=== PATIENT | male | born 1965 | race Caucasian/White ===

== ENCOUNTER → 2017-02-06 | Outpatient (CLI) | payer BC ==
[2017-02-06 09:12] LABS: BASOPHILS # (AUTO) 0.05 10*3/UL; BASOPHILS % (AUTO) 1.2 % (0-1); HEMOGLOBIN 14.3 g/dL (14.0-18.0); IMM GRAN % (AUTO) 0 % (0-5); IMM GRAN# (AUTO) 0 10*3/UL; LYMPHOCYTES # (AUTO) 0.94 10*3/uL; LYMPHOCYTES % (AUTO) 23.4 % (10-50); MEAN CORPUSCULAR HEMOGLOBIN 27.7 PG (27-31); MEAN CORPUSCULAR HGB CONC 32.5 g/dL (33-37); MEAN PLATELET VOLUME 8.7 FL (7.4-12.2); MONOCYTES # (AUTO) 0.58 10*3/UL (0.3-0.8); MONOCYTES % (AUTO) 14.5 % (5-15); NEUTROPHILS % (AUTO) 54.9 % (50-80); RDW COEFFICIENT OF VARIATION 13.1 % (11.5-14.5); RED BLOOD COUNT 5.16 10^6/uL (4.70-6.10); WHITE BLOOD COUNT 4.01 10^3/uL (4.8-10.8)
[2017-02-06 09:29] LABS: HEMOGLOBIN A1C 8.57 % (4.2-6.0); MEAN BLOOD GLUCOSE (CALC) 199.381 mg/dL
[2017-02-06 09:31] LABS: BILIRUBIN,TOTAL 0.7 mg/dL (0.3-1.2); BUN/CREATININE RATIO 16.15 (6-20); CREATININE 1.3 mg/dL (0.70-1.50); POTASSIUM 4.4 meq/L (3.8-5.2); TOTAL PROTEIN 6.7 g/dL (6.1-8.0)
[2017-02-06 09:37] LABS: CREATININE, URINE 90.8 MG/DL (15-500)
[2017-02-06 09:47] LABS: PLATELET MORPHOLOGY COMMENT NORMAL MORPHOLOGY (NORM)
[2017-02-06 09:48] LABS: CALCIUM 9.6 mg/dL (8.7-10.7)
[2017-02-06 09:51] LABS: BILIRUBIN,URINE NEGATIVE (NEG); CLARITY,URINE CLEAR (CLEAR); GLUCOSE, URINE (UA) 250 mg/dL (NEG); LEUKOCYTE ESTERASE ,URINE NEGATIVE (NEG); NITRATE,URINE NEGATIVE (NEG); OCCULT BLOOD,URINE NEGATIVE (NEG); PH,URINE 5.5 (5.0-8.5); PROTEIN,URINE TRACE mg/dl (NEG); URINE SAMPLE TYPE CLEAN CATCH URINE
[2017-02-06 09:52] LABS: RBC,URINE 0-1 /hpf; WBC,URINE 0
[2017-02-06 15:17] LABS: LDL CHOLESTEROL,CALCULATED 74.6 mg/dL
== END ==
LOC: LAB 08:35
DX: E10.21 Type 1 diabetes mellitus with diabetic nephropathy (principal); I10 Essential (primary) hypertension; E55.9 Vitamin D deficiency, unspecified; Z94.0 Kidney transplant status
CPT/HCPCS: 36415; 80053; 80061; 80197; 81001; 82043; 82306; 83036; 84443; 85025

== ENCOUNTER → 2017-07-15 | Outpatient (CLI) | payer BC ==
[2017-07-15 10:23] LABS: HEMOGLOBIN A1C 8.85 % (4.2-6.0)
[2017-07-15 10:39] LABS: BLOOD UREA NITROGEN 24 mg/dL (7-22); CALCIUM 9.6 mg/dL (8.7-10.7); EST GLOMERULAR FILTRATION > 60 (>60 ml/min/1.73m(2))
== END ==
LOC: MOB LAB 08:24
DX: E10.21 Type 1 diabetes mellitus with diabetic nephropathy (principal); Z94.0 Kidney transplant status
CPT/HCPCS: 36415; 80053; 80197; 83036

== ENCOUNTER 2018-12-08 18:31 | Inpatient (IN) ==
[2018-12-08] MEDS ORDERED: Sodium Chloride 0.9% 1,000 ML PRIMARY IV ONE (18:49)
[2018-12-08] MEDS ORDERED: LABETALOL 20 MG/4 ML (5 MG/1 ML) SYRINGE IVP ONE (18:54)
[2018-12-08 19:04] LABS: BASOPHILS # (AUTO) 0.03 10*3/UL; BASOPHILS % (AUTO) 0.4 % (0-1); EOSINOPHILS # (AUTO) 0.08 10*3/UL; EOSINOPHILS % (AUTO) 1.1 % (0-8); Hematocrit [HCT] 47.5 % (42.0-52.0); Hemoglobin [HGB] 15.8 g/dL (14.0-18.0); LYMPHOCYTES # (AUTO) 1.24 10*3/uL; MEAN CORPUSCULAR HEMOGLOBIN 28.2 PG (27-31); MEAN CORPUSCULAR HGB CONC 33.3 g/dL (33-37); MEAN CORPUSCULAR VOLUME 84.8 FL (80-90); MEAN PLATELET VOLUME 8.9 FL (7.4-12.2); MONOCYTES # (AUTO) 0.42 10*3/UL (0.3-0.8); MONOCYTES % (AUTO) 5.9 % (5-15); NEUTROPHILS # (AUTO) 5.38 10*3/UL; NEUTROPHILS % (AUTO) 75.2 % (50-80)
[2018-12-08 19:06] LABS: PLATELET MORPHOLOGY COMMENT NORMAL MORPHOLOGY (NORM); RBC MORPHOLOGY COMMENT NORMAL MORPHOLOGY (NORM); WBC MORPHOLOGY COMMENT NORMAL MORPHOLOGY (NORM)
--- NOTE | 2018-12-08 19:11 | EKG ---
[address] [address] Measurements Intervals [place] Rate: 57 P: 109 GA: 178 QRS: -28 QRSD: 110 T: 149 QT: 372 QTc: 365 Interpretive Statements Sinus Rhythm Borderline left axis and Left Ventricular hypertrophy (by aVL voltage) Since 02/16/2016 study no acute changes Electronically Signed On 12-09-18 08:29:01 [facility] by Shahram Alva MD [email or web address]
[2018-12-08 19:15] LABS: BUN/CREATININE RATIO 14.61 (6-20); SERUM ALBUMIN 4.7 g/dL (3.5-4.8)
[2018-12-08 20:21] LABS: BILIRUBIN,URINE NEGATIVE (NEG); CLARITY,URINE CLEAR (CLEAR); COLOR,URINE YELLOW (Y); GLUCOSE, URINE (UA) 100 mg/dL (NEG); OCCULT BLOOD,URINE NEGATIVE (NEG); PROTEIN,URINE 30 mg/dl (NEG); UROBILINOGEN,URINE 0.2 EU/dL (0.2)
[2018-12-08 20:22] LABS: URINE SAMPLE TYPE VOIDED SPECIMEN
[2018-12-08 20:26] LABS: RBC,URINE 0-1 /hpf; WBC,URINE 0-1
--- NOTE | 2018-12-08 20:55 | PDOC ---
General Adult HPI - General Chief Complaint: General Medical Stated Complaint: HYPERTENSION Date Seen by Provider: 12/08/18 Time Seen by Provider: 18:45 Source: POSITIVE: Patient Exam Limitations: POSITIVE: No limitations Nurse's Notes Reviewed & Considered: Yes - History of Present Illness Initial Comment: The patient is a 53-year-old male. Patient has a history of renal failure due to diabetes. He states he underwent a renal transplant in 2003. The patient was having an eye exam done by his eye physician today and the patient states that in the eye physician's office his blood pressure was 212/105. Patient took his blood pressure at home after he returned from the eye physician's office and his blood pressure was 239/103. Patient states that when he went into acute renal failure he had a hypertensive crisis which resulted in hemorrhage into both eyes. He underwent bilateral vitrectomies and he was able to save the vision in his left eye, but his right eye is blind. Patient has a dialysis shunt in his left forearm which was used prior to his renal transplant. Patient denies any head chest or abdominal pain. No GI or symptoms. No neurologic symptoms. Patient was cared for by Dr. Almodovar and is now cared for by Dr. Potter. Patient had a recent CMP done and at that time his creatinine was 1.4. Have you received a tetanus shot in the past 10 years?: Unknown Body Location Affected: REPORTS: Other (High blood pressure) Timing: REPORTS: Gradual Duration: >24 hours Severity: Moderate Quality: REPORTS: Other Context: REPORTS: Other (As above) Modifying Factors: improves with: Nothing Similar Symptoms Previously: Yes (history of hypertension as above; on ramipril and carvedilol) Recent Care Received: REPORTS: Recently Seen, Treated by MD (As above) Any Prior Injuries Related to Current Complaint?: No - Patient Home Medications Home Medications: Home Medications Multivitamin [One Daily] 1 ea PO DAILY 05/11/12 Aspirin [Aspir 81] 81 mg PO QD 06/18/13 Cholecalciferol (Vitamin D3) [Vitamin D3] 2,000 unit PO QD 06/18/13 Peg 3350/Na Sulf,Bicarb,Cl/KCl [Peg-3350 and Electrolytes Soln] 4,000 ml PO DAILY #1 bottle 09/30/14 insulin lispro (U- 100) 100 unit/mL subcutaneous solution 1.5 unit CONTINUOUS SUBCUTANEOUS INFUSION PRN #3 vial 11/06/17 blood sugar diagnostic strips 1 strip MISCELLANEOUS 6XD #200 strip 03/07/18 carvedilol 12.5 mg tablet 12.5 mg PO BID #180 tab 07/17/18 ramipril 10 mg capsule 10 mg PO QDAY #30 cap 09/11/18 mycophenolate sodium 360 mg tablet,delayed release 720 mg PO BID #120 tab 09/19/18 prednisone 5 mg tablet 5 mg PO QDAY #30 tab 09/19/18 pravastatin 10 mg tablet 10 mg PO QDAY #30 tab 10/03/18 tacrolimus 1 mg capsule 1 mg PO BID #60 cap 10/09/18 Ostomy Supply [Protective Barrier Film] 0 unit .ROUTE .MEDSUPPLY 12/08/18 - Patient Allergies Allergies/Adverse Reactions: Allergies Allergy/AdvReac Type Severity Reaction Status Date / Time piroxicam [From Feldene] Allergy NOT Verified 12/08/18 18:33 APPLICABLE promethazine HCl Allergy HALLUCINATI Verified 12/08/18 18:33 [From Phenergan] ONS Past Medical History - heen HEENT History: Cataracts, Retinopathy Additional HEENT History: BLIND IN RIGHT EYE Cardiovascular History: Hypertension, Hyperlipidemia Respiratory History: Denies History Gastrointestinal History: Denies History Additional Gastrointestinal History: DIABETIC GASTROPARESIS. KIDNEY TRANSPLANT 2003 Genitourinary History: Renal Failure, Other (please comment) Additional Genitourinary History: HX OF RENAL FAILURE WITH KIDNEY TRANSPLANT. HAD BEEN ON DIALYSIS FOR 2 YEARS PRIOR TO TRANSPLANT Endocrine History: Type 1 Diabetes Additional Endocrine History: DIABETIC NEUROPATHY Musculoskeletal History: Osteoporosis Prosthesis or Implant: No Additional Musculoskeletal History: OSTEOPENIA Neurological History: Motion Sickness Blood Disorders: Denies History Psychiatric History: Denies History History of Sexually Transmitted Diseases: No Male Reproductive History: Denies History Cancer History: Denies History In Past Year Been Physically Harmed or Verbally Threatened: No History of MDRO: Yes Type of MDRO: MRSA History of Other Communicable Diseases: No Tobacco Use: Never Smoker Alcohol Use: Rarely In the Past 12 Months, Have Used or Abuse Any Substance: None Previous Surgical History: Yes Type / Date of Surgery: CATARACT EXT/LEFT EYE- FISTULA LEFT ARM FOR DIALYSIS. KIDNEY TRANSPLANT, VITRECTOMIES X2 BILATERAL EYES Anesthesia Reactions: No Malignant Hyperthermia: No Family History of Malignant Hyperthermia: No Significant Family History: No pertinent family hx Past Medical History Reviewed: Reviewed - No Changes ROS - Limitations ROS Limitations: No Limitations Constitution: REPORTS: Denies Symptoms Cardiovascular: REPORTS: Denies Cardiac Symptoms Respiratory: REPORTS: Denies Resp Symptoms Neurological: REPORTS: Denies Neuro Symptoms Gastrointestinal: REPORTS: Denies GI Symptoms Endocrine: REPORTS: Denies Symptoms Musculoskeletal: REPORTS: Denies MS Symptoms Genitourinary: REPORTS: Denies Symptoms Eyes: REPORTS: Denies Symptoms ENT: REPORTS: Denies Symptoms Skin: REPORTS: Denies Skin Symptoms Lympathic: REPORTS: Denies Lympathic Symptoms Immunologic: POSITIVE: Denies Symptoms Psychiatric: POSITIVE: Denies Psych Symptoms General Adult Exam - General Appearance General Appearance: POSITIVE: Alert, Cooperative, No Acute Distress, No Evidence of Trauma - HEENT HEENT: POSITIVE: Head Inspection Nml, Ears Inspection Nml, Nose Inspection Nml, Oral/Dental Inspect. Nml, Pharynx Inspect. Nml, EOMI. NEGATIVE: Eyes Inspection Nml (Right cornea is opacified; right eye blind) - Pupils Pupil Size: 4 mm: Left (reactive to light and accommodation) - Neck Neck: POSITIVE: Normal Inspection, Thyroid Normal - Respiratory Respiratory: POSITIVE: No Respiratory Distress, Breath Sounds Normal, Chest Non- Tender - Cardiovascular Cardiovascular: POSITIVE: Regular Rate & Rhythm, No Murmur, No Gallop, PMI Normal Peripheral Pulses: Radial (R): 2+, Radial (L): 2+ - Abdomen Abdomen: Soft: (All Quadrants), Normal Bowel Sounds: (All Quadrants), Denies Tenderness: (All Quadrants), No Splenomegaly: (All Quadrants), No Hepatomegaly: (All Quadrants), No Guarding: (All Quadrants), No Rebound: (All Quadrants), No Palpable Pulse: (All Quadrants), No [place]ale Mass: (All Quadrants), No Distention: (All Quadrants), No Rigidity: (All Quadrants) - Back Back: POSITIVE: Normal Inspection - Skin Skin: POSITIVE: Normal Color, Warm, Dry, No Rash - Extremities Extremity: Non-Tender: (All Extremities), Normal ROM: (All Extremities), Normal Inspection: (All Extremities) - Neurological / Psychological Neurological: POSITIVE: Oriented X3, insulation nozzleman Normal As Tested, Motor Normal, Sensation Normal, 5, 6 General Adult Progress - Results Reviewed by me Lab Results Reviewed by Me: Yes Lab Results:: Laboratory Results 12/08/18 12/08/18 12/08/18 19:00 19:00 20:21 WBC 7.16 RBC 5.60 Hgb 15.8 Hct 47.5 MCV 84.8 MCH 28.2 MCHC 33.3 RDW Std Deviation 41.3 RDW Coeff of Aparna 13.4 Plt Count 234 MPV 8.9 Immature Gran % (Auto) 0.1 Neut % (Auto) 75.2 Lymph % (Auto) 17.3 [place] % (Auto) 5.9 Eos % (Auto) 1.1 Baso % (Auto) 0.4 Immature Gran # (Auto) 0.01 Neut # (Auto) 5.38 Lymph # (Auto) 1.24 [place] # (Auto) 0.42 Eos # (Auto) 0.08 Baso # (Auto) 0.03 WBC Morphology Comment Normal morphology Plt Morphology Comment Normal morphology RBC Morph Comment Normal morphology Sodium 131 L Potassium 4.3 Chloride 95 L Carbon Dioxide 28 Anion Gap 8 BUN 19 Creatinine 1.3 Estimated GFR 58 BUN/Creatinine Ratio 14.61 Glucose 160 H Calculated Osmolality 276.0 Calcium 9.8 Total Bilirubin 1.0 AST 20 L ALT 32 Alkaline Phosphatase 49 Total Protein 7.4 Albumin 4.7 Globulin 2.7 Albumin/Globulin Ratio 1.70 Ur Collection Type Voided specimen Urine Color Yellow Urine Clarity Clear Urine pH 7.0 Ur Specific [place] 1.015 Urine Protein 30 A Urine Glucose (UA) 100 Urine Ketones Negative Urine Occult Blood Negative Urine Nitrate Negative Urine Bilirubin Negative Urine Urobilinogen 0.2 Ur Leukocyte Esterase Negative Urine RBC 0-1 Urine WBC 0-1 Ur Squamous Epith Cells None Ur Renal Epithelial Cell None Urine Crystals None Urine Bacteria None Urine Casts None Urine Mucus None Urine Trichomonas None Urine Yeast None Ur Culture Indicated? Culture not set CBC and BMP: 12/08/18 19:00 12/08/18 19:00 EKG Interpreted/Reviewed By Me:: Yes (Q-wave in lead 1 and aVL; unchanged from 10/29/2014) EKG Interpretation:: POSITIVE: Normal Sinus Rhythm, Normal Rate, Normal Intervals, Normal [place], Normal ST/T. NEGATIVE: Normal QRS (Q-wave in leads 1 and aVL, unchanged from 10/29/2014) - Patient's Progress Pain Medication Addressed: POSITIVE: Yes School/Work Release Addressed: POSITIVE: Not Applicable Re-Examine Time: 20:25 Re-Examine Comment: Labetalol 20 mg IV over 2 minutes was given. Patient's blood pressure went down to 180/94, but then came back up to 222/101. Patient's renal status appears stable, however in view of the fact of patient's renal problems, and his past history of hypertensive crisis resulting in blindness to his right eye, it is felt prudent to admit the patient and gradually lower his blood pressure and for further evaluation. Case discussed with Dr. Hussein, hospitalist, who will admit patient for further evaluation and treatment. Status: POSITIVE: Unchanged, Re-Examined Antibiotics Given: No - Consult Consult (If Yes, Name of Consulting MD & Time Called): Yes (Dr. Hussein, hospitalist, 2024) Consulting MD will see pt:: POSITIVE: [facility] Admit Counseled: POSITIVE: Patient, RE: Lab Results, RE: DX, RE: Need for F/U Patient Care Time - Estimated PCT Patient Care Time (In Minutes): 50 Vital Signs - Recent Vital Signs Vital Signs: On discharge, blood pressure is 222/101, heart rate 64, respiratory rate 18, temperature 96.3, oxygen saturation 98%. - VS Reviewed Vital Signs Reviewed: Yes Discharge Clinical Impression: Hypertensive urgency, Diabetes mellitus, Renal transplant, status post Discharge Disposition: Admit to Inpatient Condition: Good Follow Up With: FRANCHESKA POTTER [Primary Care Provider] - Date Decision to Admit to Inpatient: 12/08/18 Time Decision to Admit to Inpatient: 20:25
[2018-12-08] MEDS ORDERED: Nitroglycerin Drip 25,000 MCG/250 ML BOTTLE IV ONE (21:42)
--- NOTE | 2018-12-08 21:51 | PDOC ---
HPI - History of Present Illness Date of Service: 12/08/18 Time of Service: 21:46 Chief Complaint: High blood pressure History of Present Illness: This very pleasant 53-year-old male with history of right eye blindness after retinal detachment, diabetes mellitus type I, history of renal transplant in 2003, who comes in stating that he had his eyes checked today by his eye doctor and it was noted that his systolic blood pressure was was in the systolic blood pressure range of 212. He denies having significant problems with his blood pressure since his kidney transplant in 2003. Prior to his kidney transplant, he had significantly high blood pressures that were involved with his retinal detachment. He tells me that his eye exam was okay today with his eye technician. He had some changes in his vision and has bifocal prescription was changed today. Despite his blood pressure, apparently on eye examination there did not appear to be any hypertensive damage. He had some sort of film developing over her prior cataract this with the patient conveyed to me. He went home, checked his blood pressure again, and his systolic pressure was in the 230s. He states to me that normally his blood pressures are in the 130s range or below on the systolic side. He has not checked her blood pressure since about mid November. He is on both Coreg and ramipril for his blood pressures and his creatinine runs around 1.3 and is been around that range since his kidney transplant. The donor was his sister. He does not follow with a boot and shoe repairman at this time for monitoring his tacrolimus or CellCept levels. He denies any anti-inflammatory use. He does not smoke. He states to me that his systolic pressure the last time he visited his primary physician was around the 160s range, but he states that it can go up a little bit during the evening after his work is done for the day. 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 He denied any chest pain, headaches, or urinary complaints. His initial EKG shows sinus bradycardia with no evidence of ST changes. Troponin was negative. Past Medical History Medical History: 1. Hypertension. 2. Diabetes mellitus type I, on insulin pump. 3. End-stage kidney disease status post live donor transplant, in 2003, on CellCept, prednisone, and tacrolimus. 4. Hypercholesterolemia. 5. Dupuytren's contracture, left hand, awaiting surgery. Surgical History: 1. Renal transplant, live donor, in 2003 Pertinent Family History: Significant for diabetes and heart disease in his family Past Social History: Does not smoke or drink alcohol. Has 6 children described as healthy. 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 Lives in [place], [place]. Tobacco Use: Never Smoker In the Past 12 Months, Have Used or Abuse Any of the Following Substance: None Alcohol Use: None Medication / Allergies Home Medications: Home Medications Medication Instructions Recorded Confirmed Type Multivitamin [One Daily] 1 ea PO DAILY 05/11/12 12/08/18 History Aspirin [Aspir 81] 81 mg PO QD 06/18/13 12/08/18 History Cholecalciferol (Vitamin D3) 2,000 unit PO QD 06/18/13 12/08/18 History [Vitamin D3] Peg 3350/Na Sulf,Bicarb,Cl/KCl 4,000 ml PO DAILY #1 bottle 09/30/14 12/08/18 History [Peg-3350 and Electrolytes Soln] insulin lispro (U- 100) 100 1.5 unit CONTINUOUS SUBCUTANEOUS 11/06/17 12/08/18 Rx unit/mL subcutaneous solution INFUSION PRN #3 vial blood sugar diagnostic strips 1 strip MISCELLANEOUS 6XD #200 03/07/18 12/08/18 Rx strip carvedilol 12.5 mg tablet 12.5 mg PO BID #180 tab 07/17/18 12/08/18 Rx ramipril 10 mg capsule 10 mg PO QDAY #30 cap 09/11/18 12/08/18 Rx mycophenolate sodium 360 mg 720 mg PO BID #120 tab 09/19/18 12/08/18 Rx tablet,delayed release prednisone 5 mg tablet 5 mg PO QDAY #30 tab 09/19/18 12/08/18 Rx pravastatin 10 mg tablet 10 mg PO QDAY #30 tab 10/03/18 12/08/18 Rx tacrolimus 1 mg capsule 1 mg PO BID #60 cap 10/09/18 12/08/18 Rx Ostomy Supply [Protective Barrier 0 unit .ROUTE .MEDSUPPLY 12/08/18 12/08/18 History Film] Allergies/Adverse Reactions: Allergies Allergy/AdvReac Type Severity Reaction Status Date / Time piroxicam [From Feldene] Allergy NOT Verified 12/08/18 18:33 APPLICABLE promethazine HCl Allergy HALLUCINATI Verified 12/08/18 18:33 [From Phenergan] ONS Review of Systems - Review of Systems All Systems: Reviewed & No Additional Complaints Except as Stated (I did a 12 point review systems and it was negative other than that discussed below and in the history of present illness.) - Gastrointestinal Gastrointestinal / Abdominal: REPORTS: Constipation (Intermittent that is relieved with diet or occasional Colace. Has had colonoscopy that was negative in the past.) Exam - Vitals Vital Signs: Vital Signs Temperature 96.3 F Temperature Source Temporal Artery Scan Pulse Rate [Pulse Oximeter] 64 Respiratory Rate 18 Blood Pressure [Right Arm] 215/106 Pulse Ox 98 Oxygen Delivery Method Room Air Height 5 ft 11 in Weight 195 lb - General General Appearance: No Acute Distress, Cooperative - Head Head Exam: Normal Inspection, Normocephalic, Atraumatic - Eye Eye Exam: POSITIVE: No Scleral Icterus Eye: Other: Bilateral Eye (the right lens is clouded over, blind since 2003.) - ENT ENT Exam: POSITIVE: Mucous Membranes Moist - Neck Neck Exam: Normal Inspection, No Tenderness, No Lymphadenopathy, No Thyromegaly, JVP is not Raised - Respiratory Respiratory Exam: POSITIVE: Clear to Auscultation - Bilaterally, Breathing Non Labored, Normal to Percussion and Palpation - Cardiovascular Cardiovascular Exam: POSITIVE: RRR, No Murmur, No Clicks, No Gallops, No Rubs, No JVD - GI/Abdominal GI/Abdominal Exam: POSITIVE: Normal Bowel Sounds, Non Tender, Non Distended, Soft - Rectal Rectal Exam: POSITIVE: Deferred - External Exam: POSITIVE: Deferred Exam: POSITIVE: Deferred - Extremities Extremities Exam: POSITIVE: No Clubbing Present, No Edema Present, No Cyanosis Present - Back Back Exam: POSITIVE: No CVA Tenderness - Neurological Neurological Exam: POSITIVE: Alert, Oriented x 3, No Facial Droop, Speech Intact / Clear, Moves All Extremities Equally - Psychiatric Psychiatric Exam: POSITIVE: Normal Affect, Normal Mood Results - Labs CBC and BMP: 12/08/18 19:00 12/08/18 19:00 Additional Lab Results: Laboratory Results 12/08/18 12/08/18 12/08/18 19:00 19:00 20:21 WBC 7.16 RBC 5.60 Hgb 15.8 Hct 47.5 MCV 84.8 MCH 28.2 MCHC 33.3 RDW Std Deviation 41.3 RDW Coeff of Aparna 13.4 Plt Count 234 MPV 8.9 Immature Gran % (Auto) 0.1 Neut % (Auto) 75.2 Lymph % (Auto) 17.3 [place] % (Auto) 5.9 Eos % (Auto) 1.1 Baso % (Auto) 0.4 Immature Gran # (Auto) 0.01 Neut # (Auto) 5.38 Lymph # (Auto) 1.24 [place] # (Auto) 0.42 Eos # (Auto) 0.08 Baso # (Auto) 0.03 WBC Morphology Comment Normal morphology Plt Morphology Comment Normal morphology RBC Morph Comment Normal morphology Sodium 131 L Potassium 4.3 Chloride 95 L Carbon Dioxide 28 Anion Gap 8 BUN 19 Creatinine 1.3 Estimated GFR 58 BUN/Creatinine Ratio 14.61 Glucose 160 H Calculated Osmolality 276.0 Calcium 9.8 Total Bilirubin 1.0 AST 20 L ALT 32 Alkaline Phosphatase 49 Total Protein 7.4 Albumin 4.7 Globulin 2.7 Albumin/Globulin Ratio 1.70 Ur Collection Type Voided specimen Urine Color Yellow Urine Clarity Clear Urine pH 7.0 Ur Specific [place] 1.015 Urine Protein 30 A Urine Glucose (UA) 100 Urine Ketones Negative Urine Occult Blood Negative Urine Nitrate Negative Urine Bilirubin Negative Urine Urobilinogen 0.2 Ur Leukocyte Esterase Negative Urine RBC 0-1 Urine WBC 0-1 Ur Squamous Epith Cells None Ur Renal Epithelial Cell None Urine Crystals None Urine Bacteria None Urine Casts None Urine Mucus None Urine Trichomonas None Urine Yeast None Ur Culture Indicated? Culture not set - EKG Data -: EKG Interpreted by Me Rate: Bradycardia EKG Shows Normal: Sinus Rhythm - Imaging Status: Other (I have ordered a chest x-ray to look for signs of congestive heart failure or cardiomegaly.) Assessment and Plan - Patient Problems (1) Hypertensive crisis Current Visit: Yes Status: Acute Code(s): I16.9 - Hypertensive crisis, unspecified (2) Dupuytren contracture Current Visit: Yes Status: Acute Onset Date: 06/27/16 Code(s): M72.0 - Palmar fascial fibromatosis [Dupuytren] (3) Type 1 diabetes mellitus without complication Current Visit: Yes Status: Acute Code(s): E10.9 - Type 1 diabetes mellitus without complications (4) Hypertension Current Visit: Yes Status: Acute Code(s): I10 - Essential (primary) hypertension Qualifiers: Hypertension type: essential hypertension Qualified Code(s): I10 - Essential (primary) hypertension (5) Gastroparesis due to DM Current Visit: Yes Status: Acute Onset Date: 09/23/14 Code(s): E11.43 - Type 2 diabetes mellitus with diabetic autonomic (poly)neuropathy; K31.84 - Gastroparesis (6) Kidney replaced by transplant Current Visit: Yes Status: Acute Onset Date: 12/15/13 Code(s): Z94.0 - Kidney transplant status - Assessment / Plan Additional Assessment/Plan Details: I discussed with the patient that I feel that overall we should place him on some medications to try and bring his blood pressure down overnight. I'm really shooting to try and do about 10-20% reduction and get him on some by mouth medications to help. I did discuss with the patient that there are several medi cations that can interfere with CellCept and tacrolimus levels, and that given his kidney transplant status, it would be best if we got him in with a boot and shoe repairman. He has not followed one since Dr. Almodovar, . We can arrange this with the kidney specialist either in [place], or in [place]. I'm reluctant to increase the ESTELITA inhibitor due to his creatinine already being at 1.3. I would defer that to a boot and shoe repairman as an outpatient. We'll try a nitroglycerin drip here tonight, and if that is not effective, may go to nitroprusside. I have written for some Tylenol for headache if the pat ient develops any headache as side effects. Start at 5 mics per minute and will see how the blood pressures respond. Continue beta argenis but I don't think we have any room to increase the Coreg given his bradycardia already. May add Nitro-Bid by mouth starting tomorrow. Check labs in a.m. Check chest x-ray to see if there is any evidence for heart failure or cardiomegaly FULL CODE plan discussed with patient and he agrees with plan above.
[2018-12-08] MEDS ORDERED: ACETAMINOPHEN 325 MG TABLET PO PRN (22:42)
[2018-12-08] MEDS ORDERED: LIDOCAINE W/ SODIUM BICARB 0.5 ML SYR SUBD PRN (22:42)
[2018-12-08] MEDS ORDERED: DOCUSATE 100 MG CAPSULE PO PRN (22:42)
[2018-12-08] MEDS ORDERED: CALCIUM CARBONATE 500 MG (TUMS) CHEWABLE TABLET PO PRN (22:42)
[2018-12-08] MEDS ORDERED: INSULIN LISPRO SUBCUT SCH (22:42)
[2018-12-08] MEDS ORDERED: Nitroglycerin Drip 25,000 MCG/250 ML BOTTLE IV SCH (22:42)
[2018-12-08] MEDS ORDERED: ONDANSETRON 4 MG/2 ML VIAL IVP PRN (22:42)
[2018-12-08] MEDS ORDERED: Pravastatin Tab 20 MG TAB PO SCH (23:15)
[2018-12-08] MEDS: CARVEDILOL 12.5 MG TABLET PO SCH (23:21)
[2018-12-08] MEDS: TACROLIMUS ANHYDROUS 1 MG PO SCH (23:22)
[2018-12-08] MEDS: MYCOPHENOLATE SODIUM 360 MG PO SCH (23:22)
--- NOTE | 2018-12-08 23:39 | DI ---
History: ITS.REASON hypertensive crisis Physician Notes: Tech Comments: Exam: XR CXR 1 VIEW Comparison: 06/06/2013 FINDINGS: The lungs are clear. The pulmonary vascularity appears within limits. The cardiac and mediastinal contours appear within limits. The visualized osseous structures appear unremarkable. IMPRESSION: No evidence of acute disease.
[2018-12-09] MEDS ORDERED: NITROGLYCERIN SR 2.5 MG CAPSULE PO ONE (01:39)
[2018-12-09 05:37] LABS: BUN/CREATININE RATIO 13.07 (6-20)
[2018-12-09] MEDS: RAMIPRIL 10 MG CAPSULE PO SCH ×2 (06:08→08:23)
[2018-12-09] MEDS: CARVEDILOL 12.5 MG TABLET PO SCH ×2 (06:09→08:22)
[2018-12-09] MEDS: TACROLIMUS ANHYDROUS 1 MG PO SCH (08:31)
[2018-12-09] MEDS: MYCOPHENOLATE SODIUM 360 MG PO SCH (08:31)
[2018-12-09 08:43] VITALS: RESP 18; TEMP 96.8; O2SAT 93
[2018-12-09] MEDS ORDERED: predniSONE 5 MG TABLET PO SCH (09:00)
[2018-12-09] MEDS ORDERED: CHOLECALCIFEROL 1000 IU TABLET PO SCH (09:00)
[2018-12-09] MEDS ORDERED: NITROGLYCERIN SR 2.5 MG CAPSULE PO SCH ×2 (09:00)
[2018-12-09] MEDS ORDERED: Multivitamin Tab 1 TAB PO SCH (09:00)
[2018-12-09] MEDS ORDERED: ASPIRIN EC 81 MG TABLET PO SCH (09:00)
[2018-12-09] MEDS ORDERED: NITROGLYCERIN 6.5 MG PO SCH (09:00)
--- NOTE | 2018-12-09 10:44 | DCSUMMARY ---
Hospitalization Summary Admit Date: 12/08/2017 Discharge Date: 12/09/18 Primary Diagnosis:: hypertensive crisis Secondary Diagnosis:: Status post renal transplant, 2003 Hospital Course: This very pleasant 53-year-old male that came in with high blood pressures noticed in his eye clinic. He stated he felt "foggy", and noticed that his blood pressure was still at 239 when he got home after it was 212 systolic at the eye clinic. He came in for evaluation, and there was no evidence of end organ damage. There was no evidence of focal findings so a CT scan was not done of the head. Patient was admitted in hypertensive crisis and nitroglycerin was used. The patient's blood pressures improved significantly and his systolic pressures now have come down to the 130s to 140s systolic prior to discharge. We were able to stop the nitroglycerin drip and placed him on Nitro-Bid 2.5 mg twice a day. He does not have any fogginess this morning, he has normal vision in his left eye. He denies any chest pain, shortness breath, or nausea or vomiting. He is willing to reestablish with the real estate asset manager. So we talked with Dr. Edwards with [facility] and he was willing to take the patient and his office will call to schedule an appointment. Assessment and Plan: 1. As per discharge assessments noted 2. Disposition: Patient is discharged home. 3. Condition on discharge, stable and improved. 4. Diet: regular diet 5. Activities: resume normal activities 6. Follow-Up: 1. Dr. Acosta one week 2. Nephrology at next available 7. Medications at the Time of Discharge: Home Medications Medication Instructions Recorded Confirmed Type Multivitamin [One Daily] 1 ea PO DAILY 05/11/12 12/08/18 History Aspirin [Aspir 81] 81 mg PO QD 06/18/13 12/08/18 History Cholecalciferol (Vitamin D3) 2,000 unit PO QD 06/18/13 12/08/18 History [Vitamin D3] insulin lispro (U- 100) 100 1.5 unit CONTINUOUS SUBCUTANEOUS 11/06/17 12/08/18 Rx unit/mL subcutaneous solution INFUSION PRN #3 vial blood sugar diagnostic strips 1 strip MISCELLANEOUS 6XD #200 03/07/18 12/08/18 Rx strip carvedilol 12.5 mg tablet 12.5 mg PO BID #180 tab 07/17/18 12/08/18 Rx ramipril 10 mg capsule 10 mg PO QDAY #30 cap 09/11/18 12/08/18 Rx mycophenolate sodium 360 mg 720 mg PO BID #120 tab 09/19/18 12/08/18 Rx tablet,delayed release prednisone 5 mg tablet 5 mg PO QDAY #30 tab 09/19/18 12/08/18 Rx pravastatin 10 mg tablet 10 mg PO QDAY #30 tab 10/03/18 12/08/18 Rx tacrolimus 1 mg capsule 1 mg PO BID #60 cap 10/09/18 12/08/18 Rx Nitroglycerin ER [Nitro-Bid ER] 2.5 mg PO BID #60 capsule 12/09/18 Rx Exam - Vitals Vital Signs: Vital Signs Temperature 96.8 F Temperature Source Temporal Artery Scan Pulse Rate [Apical] 58 Pulse Rate [Pulse Oximeter] 57 Pulse Rate 59 Respiratory Rate 18 Blood Pressure [Left Arm] 137/73 Blood Pressure [Right Arm] 139/77 Pulse Ox 93 Oxygen Delivery Method Room Air Height 5 ft 11 in Weight 197 lb 6 oz - General General Appearance: No Acute Distress, Cooperative - Head Head Exam: Normal Inspection, Normocephalic, Atraumatic - Eye Eye Exam: POSITIVE: No Scleral Icterus - ENT ENT Exam: POSITIVE: Mucous Membranes Moist - Respiratory Respiratory Exam: POSITIVE: Clear to Auscultation - Bilaterally, Breathing Non Labored - Cardiovascular Cardiovascular Exam: POSITIVE: RRR, No Murmur, No Clicks, No Gallops, No Rubs, No JVD - GI/Abdominal GI/Abdominal Exam: POSITIVE: Normal Bowel Sounds, Non Tender, Non Distended, Soft - Extremities Extremities Exam: POSITIVE: No Clubbing Present, No Edema Present, No Cyanosis Present - Neurological Neurological Exam: POSITIVE: Alert, Oriented x 3, No Facial Droop, Speech Intact / Clear, Moves All Extremities Equally - Psychiatric Psychiatric Exam: POSITIVE: Normal Affect, Normal Mood Data Peritnent Studies: Laboratory Results 12/08/18 12/08/18 12/08/18 19:00 19:00 20:21 WBC 7.16 RBC 5.60 Hgb 15.8 Hct 47.5 MCV 84.8 MCH 28.2 MCHC 33.3 RDW Std Deviation 41.3 RDW Coeff of Aparna 13.4 Plt Count 234 MPV 8.9 Immature Gran % (Auto) 0.1 Neut % (Auto) 75.2 Lymph % (Auto) 17.3 [place] % (Auto) 5.9 Eos % (Auto) 1.1 Baso % (Auto) 0.4 Immature Gran # (Auto) 0.01 Neut # (Auto) 5.38 Lymph # (Auto) 1.24 [place] # (Auto) 0.42 Eos # (Auto) 0.08 Baso # (Auto) 0.03 WBC Morphology Comment Normal morphology Plt Morphology Comment Normal morphology RBC Morph Comment Normal morphology Sodium 131 L Potassium 4.3 Chloride 95 L Carbon Dioxide 28 Anion Gap 8 BUN 19 Creatinine 1.3 Estimated GFR 58 BUN/Creatinine Ratio 14.61 Glucose 160 H Calculated Osmolality 276.0 Calcium 9.8 Total Bilirubin 1.0 AST 20 L ALT 32 Alkaline Phosphatase 49 Total Protein 7.4 Albumin 4.7 Globulin 2.7 Albumin/Globulin Ratio 1.70 TSH Free T4 Ur Collection Type Voided specimen Urine Color Yellow Urine Clarity Clear Urine pH 7.0 Ur Specific [place] 1.015 Urine Protein 30 A Urine Glucose (UA) 100 Urine Ketones Negative Urine Occult Blood Negative Urine Nitrate Negative Urine Bilirubin Negative Urine Urobilinogen 0.2 Ur Leukocyte Esterase Negative Urine RBC 0-1 Urine WBC 0-1 Ur Squamous Epith Cells None Ur Renal Epithelial Cell None Urine Crystals None Urine Bacteria None Urine Casts None Urine Mucus None Urine Trichomonas None Urine Yeast None Ur Culture Indicated? Culture not set 12/09/18 12/09/18 05:10 05:10 WBC RBC Hgb Hct MCV MCH MCHC RDW Std Deviation RDW Coeff of Aparna Plt Count MPV Immature Gran % (Auto) Neut % (Auto) Lymph % (Auto) [place] % (Auto) Eos % (Auto) Baso % (Auto) Immature Gran # (Auto) Neut # (Auto) Lymph # (Auto) [place] # (Auto) Eos # (Auto) Baso # (Auto) WBC Morphology Comment Plt Morphology Comment RBC Morph Comment Sodium 134 L Potassium 3.8 Chloride 100 Carbon Dioxide 28 Anion Gap 6 BUN 17 Creatinine 1.3 Estimated GFR 58 BUN/Creatinine Ratio 13.07 Glucose 222 H Calculated Osmolality 286.0 Calcium 9.6 Total Bilirubin AST ALT Alkaline Phosphatase Total Protein Albumin Globulin Albumin/Globulin Ratio TSH 1.87 Free T4 0.97 Ur Collection Type Urine Color Urine Clarity Urine pH Ur Specific [place] Urine Protein Urine Glucose (UA) Urine Ketones Urine Occult Blood Urine Nitrate Urine Bilirubin Urine Urobilinogen Ur Leukocyte Esterase Urine RBC Urine WBC Ur Squamous Epith Cells Ur Renal Epithelial Cell Urine Crystals Urine Bacteria Urine Casts Urine Mucus Urine Trichomonas Urine Yeast Ur Culture Indicated? Procedures: Metanephrines are pending [address] [facility] [place] [address] PH: DD: [phone] FAX: [phone] ~DIAGNOSTIC IMAGING REPORT~ Patient: Joes Johnson : 1965 Sex: M Age: 53 Exam Name: XR CXR 1VW Exam Date: 12/08/18 Report # : [id number] CPT Code: 71450 EMR/MR #: [id number] Ordering: DOROTA BOLDEN Admiting: DOROTA BOLDEN DO Primary: Chaitanya Acosta MD Attending: DOROTA BOLDEN DO Signed History: ITS.REASON hypertensive crisis Physician Notes: Tech Comments: Exam: XR CXR 1 VIEW Comparison: 06/06/2013 FINDINGS: The lungs are clear. The pulmonary vascularity appears within limits. The cardiac and mediastinal contours appear within limits. The visualized osseous structures appear unremarkable. IMPRESSION: No evidence of acute disease. Dictated By: Tam Mejias MD Signed By: 12/08/18 2339 Tam Mejias MD Patient Problems - Patient Problem List (1) Hypertensive crisis Current Visit: Yes Status: Acute Code(s): I16.9 - Hypertensive crisis, unspecified Category: Medical (2) Type 1 diabetes mellitus without complication Current Visit: Yes Status: Acute Code(s): E10.9 - Type 1 diabetes mellitus without complications Category: Medical (3) Hypertension Current Visit: Yes Status: Acute Code(s): I10 - Essential (primary) hypertension Qualifiers: Hypertension type: essential hypertension Qualified Code(s): I10 - Essential (primary) hypertension Category: Medical (4) Gastroparesis due to DM Current Visit: Yes Status: Acute Onset Date: 09/23/14 Code(s): E11.43 - Type 2 diabetes mellitus with diabetic autonomic (poly)neuropathy; K31.84 - Gastroparesis Category: Medical (5) Kidney replaced by transplant Current Visit: Yes Status: Acute Onset Date: 12/15/13 Comment: 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 He was on dialysis for approximately 2 years prior to his transplant. Code(s): Z94.0 - Kidney transplant status Category: Surgical (6) Dupuytren contracture Current Visit: Yes Status: Acute Onset Date: 06/27/16 Code(s): M72.0 - Palmar fascial fibromatosis [Dupuytren] Category: Medical
[2018-12-09 11:04] VITALS: BP 146/89
== END 2018-12-09 11:30 | disposition home or self-care (01) | DRG 305 ==
LOC: ER 18:31 → MED/SURG 21:41
PROVIDERS: ADMIT Family Medicine; ATTEND Family Medicine